=== PATIENT | male | born 1950 | race Caucasian/White ===

== ENCOUNTER 2017-03-04 06:21 | Day surgery (SDC) | payer MEDICARE ==
[~2017-03-04] VITALS: Ht 182.9 cm; Wt 86.2 kg
[~2017-03-04 06:21] MED LIST: ASPIRIN LOW DOS81 M1 PO; CLOPIDOGREL75 MG PO; GERITOL TONIC PO; METOPROL TAR25 M1 PO; SIMVASTATIN5 MG PO; TUMS500 MG PO
[2017-03-04 08:24] VITALS: BP 109/74
== END 2017-03-04 08:35 | disposition home or self-care (01) ==
LOC: ENDO 06:21 → ORM 08:00 → ENDO 08:10
PROVIDERS: ATTEND Internal Medicine Gastroenterology
PROC: 0DBN8ZX Excision of Sigmoid Colon, Via Natural or Artificial Opening Endoscopic, Diagnostic (ICD-10-PCS; principal; 2017-03-04)
PROC: 0W3P8ZZ Control Bleeding in Gastrointestinal Tract, Via Natural or Artificial Opening Endoscopic (ICD-10-PCS; 2017-03-04)
DX: D50.9 Iron deficiency anemia, unspecified (principal); Q27.33 Arteriovenous malformation of digestive system vessel; K57.30 Diverticulosis of large intestine without perforation or abscess without bleeding; D12.5 Benign neoplasm of sigmoid colon; K22.70 Barrett's esophagus without dysplasia; K21.9 Gastro-esophageal reflux disease without esophagitis; K44.9 Diaphragmatic hernia without obstruction or gangrene; K64.4 Residual hemorrhoidal skin tags; K64.8 Other hemorrhoids; Z80.0 Family history of malignant neoplasm of digestive organs; Z86.010 Personal history of colon polyps

== ENCOUNTER 2017-10-28 08:29 | Day surgery (SDC) | payer MEDICARE ==
[~2017-10-28] VITALS: Ht 182.9 cm; Wt 87.5 kg
[~2017-10-28 08:29] MED LIST changes: +OMEPRAZOLE20 M2 PO
[2017-10-28 10:26] VITALS: BP 99/73
== END 2017-10-28 10:35 | disposition home or self-care (01) ==
LOC: ENDO 08:29 → ORM 12:45 → ENDO 12:45
PROVIDERS: ATTEND Internal Medicine Gastroenterology
PROC: 0DB48ZX Excision of Esophagogastric Junction, Via Natural or Artificial Opening Endoscopic, Diagnostic (ICD-10-PCS; principal; 2017-10-28)
PROC: 0DJD8ZZ Inspection of Lower Intestinal Tract, Via Natural or Artificial Opening Endoscopic (ICD-10-PCS; 2017-10-28)
DX: D50.9 Iron deficiency anemia, unspecified (principal); K57.30 Diverticulosis of large intestine without perforation or abscess without bleeding; K64.8 Other hemorrhoids; Q27.33 Arteriovenous malformation of digestive system vessel; K21.0 Gastro-esophageal reflux disease with esophagitis; K44.9 Diaphragmatic hernia without obstruction or gangrene; K22.2 Esophageal obstruction; K29.70 Gastritis, unspecified, without bleeding; K64.4 Residual hemorrhoidal skin tags; I10 Essential (primary) hypertension; I25.10 Atherosclerotic heart disease of native coronary artery without angina pectoris; E78.00 Pure hypercholesterolemia, unspecified; I25.2 Old myocardial infarction; Z80.0 Family history of malignant neoplasm of digestive organs; Z86.010 Personal history of colon polyps; Z95.810 Presence of automatic (implantable) cardiac defibrillator

== ENCOUNTER 2018-05-09 06:47 | Emergency (ER) | payer MEDICARE ==
[~2018-05-09] VITALS: Ht 182.9 cm; Wt 92.3 kg
[2018-05-09] MEDS ORDERED: LISINOPRIL10 MG PO (07:11)
[2018-05-09] MEDS ORDERED: METO50TA52 PO (07:12)
[2018-05-09 07:24] LABS: HEMATOCRIT 33.2 % (39.0-50.0); IMMATURE GRANULOCYTES 1.3 % (0.0-5.0); MEAN CELL VOLUME 73.9 fL CALC (80.0-100.0); MEAN CORPUSCULAR HGB 24.3 pG CALC (26.0-32.0); MEAN CORPUSCULAR HGB CONC 32.8 g/L CALC (32.0-36.0); NEUT# 5.35 thou/uL (1.82-7.42); RED BLOOD COUNT 4.49 mill/uL (4.70-6.10); RED CELL DISTRI WIDTH 15.4 % (11.5-15.5)
[2018-05-09 07:36] LABS: PROTHROMBIN TIME 10.1 SECONDS (9.0-12.5)
[2018-05-09 07:37] LABS: ANION GAP 13 (6-22 (CALC)); BUN 13 mg/dL (8-23); BUN/CREATININE RATIO 15 (12-20 (CALC)); CARBON DIOXIDE 23 mmol/l (22-30); CHLORIDE 93 mmol/l (95-108); CREATININE 0.9 mg/dL (0.7-1.3); GFR > 60 ML/MIN (>=60 (CALC)); GFR FOR AFR.AMER. > 60 ML/MIN (>=60 (CALC)); POTASSIUM 4.3 mmol/l (3.5-5.1); SODIUM 125 mmol/l (137-146)
[2018-05-09 07:41] LABS: HEMOGLOBIN 10.9 g/dl (14.0-18.0)
[2018-05-09] MEDS ORDERED: ZPAK PO (08:04)
[2018-05-09 08:17] VITALS: BP 154/90
== END 2018-05-09 08:17 | disposition home or self-care (01) ==
LOC: ED 06:47
PROVIDERS: Family Medicine
DX: R04.2 Hemoptysis (principal); E87.1 Hypo-osmolality and hyponatremia; R91.8 Other nonspecific abnormal finding of lung field; Z95.810 Presence of automatic (implantable) cardiac defibrillator; I10 Essential (primary) hypertension

== ENCOUNTER 2019-01-08 08:26 | Emergency (ER) | payer MEDICARE ==
[~2019-01-08] VITALS: Ht 180.3 cm; Wt 75.0 kg
[~2019-01-08 08:26] MED LIST changes: +LISINOPRIL10 MG PO; +METO50TA52 PO; +ZPAK PO
[2019-01-08 09:38] LABS: HEMATOCRIT 33.5 % (39.0-50.0); HEMOGLOBIN 10.2 g/dl (14.0-18.0); IMMATURE GRANULOCYTES 2.1 % (0.0-5.0); MEAN CORPUSCULAR HGB 24.8 pG CALC (26.0-32.0); MEAN CORPUSCULAR HGB CONC 30.4 g/L CALC (32.0-36.0); NEUT# 15.03 thou/uL (1.82-7.42); RED BLOOD COUNT 4.12 mill/uL (4.70-6.10); RED CELL DISTRI WIDTH 17.1 % (11.5-15.5)
[2019-01-08 09:46] LABS: MEAN CELL VOLUME 81.3 fL CALC (80.0-100.0)
[2019-01-08 10:11] LABS: ALBUMIN 4.1 g/dL (3.2-5.0); ALKALINE PHOSPHATASE 127 u/l (38-126); ANION GAP 19 (6-22 (CALC)); BILIRUBIN, TOTAL 0.3 mg/dL (0.0-1.4); BUN 37 mg/dL (8-23); BUN/CREATININE RATIO 29 (12-20 (CALC)); CARBON DIOXIDE 25 mmol/l (22-30); CHLORIDE 100 mmol/l (95-108); CREATININE 1.3 mg/dL (0.7-1.3); GFR 55 ML/MIN (>=60 (CALC)); GFR FOR AFR.AMER. > 60 ML/MIN (>=60 (CALC)); POTASSIUM 5.1 mmol/l (3.5-5.1); SGOT/AST 22 u/l (19-48); TOTAL PROTEIN 7.3 g/dL (6.3-8.2)
[2019-01-08 10:13] LABS: SODIUM 139 mmol/l (137-146)
[2019-01-08 10:19] LABS: MYOGLOBIN 50 ng/mL (0 - 121)
[2019-01-08] MEDS ORDERED: PERCOCET 5/325M1 TAB PO (10:29)
[2019-01-08] MEDS ORDERED: XARELTO10 MG PO (10:29)
[2019-01-08] MEDS ORDERED: FLONASE AL50 MCG/ACT (10:30)
[2019-01-08] MEDS ORDERED: PROVENTIL0.083 % IN (10:30)
[2019-01-08 13:10] LABS: URINE BILIRUBIN - DIPSTICK NEGATIVE (NEGATIVE); URINE BLOOD DIPSTICK NEGATIVE (NEGATIVE); URINE COLOR YELLOW; URINE GLUCOSE - DIPSTICK NEGATIVE (NEGATIVE); URINE KETONE NEGATIVE (NEGATIVE); URINE LEUK ESTERASE NEGATIVE (NEGATIVE); URINE NITRITE - DIPSTICK NEGATIVE (Negative); URINE PH 5.5 (4.5-8.0); URINE PROTEIN - DIPSTICK NEGATIVE (NEG-TRACE); URINE SPECIFIC GRAVITY 1.025; URINE UROBILINOGEN - DIPSTICK 0.2 E.U./dL (0.2)
[2019-01-08 14:00] VITALS: BP 109/52
== END 2019-01-08 14:00 | disposition short-term general hospital (02) ==
LOC: ED 08:26
PROVIDERS: Emergency Medicine
DX: A41.9 Sepsis, unspecified organism (principal); J18.9 Pneumonia, unspecified organism; J44.0 Chronic obstructive pulmonary disease with (acute) lower respiratory infection; I10 Essential (primary) hypertension; I25.2 Old myocardial infarction; C34.90 Malignant neoplasm of unspecified part of unspecified bronchus or lung; Z79.899 Other long term (current) drug therapy